=== PATIENT | male | born 1975 | race Caucasian/White ===

== ENCOUNTER 2017-03-08 18:25 | Emergency (ER) | payer OTHER, SELFPAY ==
[2017-03-08] MEDS ORDERED: Sodium Chloride 0.9% 1,000 ML IV STA (19:54)
[2017-03-08 21:00] LABS: BASO # 0.1 K/uL (0.0-0.2); BASO % 1.4 % (0.0-2.0); EOS # 0.1 K/uL (0.0-0.7); EOS % 1.3 % (0.0-4.0); HEMATOCRIT 41.1 % (35.0-51.0); LYMPH # 1.7 K/uL (1.0-4.3); LYMPH % 39.4 % (20.0-40.0); MEAN CELL VOLUME 90.2 fl (80.0-94.0); MEAN CORPUSCULAR HEMOGLOBIN 30.3 pg (27.0-31.0); MEAN CORPUSCULAR HGB CONC 33.6 g/dL (33.0-37.0); MEAN PLATELET VOLUME 7.7 fl (7.2-11.7); MONO # 0.5 K/uL (0.0-0.8); MONO % 11.6 % (0.0-10.0); NEUT % 46.3 % (50.0-75.0); NRBC % 0.1 % (0.0-0.0); WHITE BLOOD COUNT 4.4 K/uL (4.8-10.8)
--- NOTE | 2017-03-08 21:07 | ED PDOC ---
HPI: General Adult Time Seen by Provider: 03/08/17 19:46 Chief Complaint (Nursing): Flu-like Symptoms Chief Complaint (Provider): Flu-like symptoms History Per: Patient History/Exam Limitations: no limitations Onset/Duration Of Symptoms: Days (x4) Additional Complaint(s): Sharad Morris, 41 year old male presents to the ED on 03/08/17 with fever, cough , and body aches occurring 4 days prior to arrival. The patient has been taking Tylenol with minimal relief. He denies any recent sick contacts, recent travel, nausea, vomiting, diarrhea, abdominal pain, or rash. Past Medical History Reviewed: Historical Data, Nursing Documentation, Vital Signs Vital Signs: Last Vital Signs Temp 100.1 F H 03/08/17 23:16 Pulse 90 03/08/17 23:16 Resp 14 03/08/17 23:16 BP 122/69 03/08/17 23:16 Pulse Ox 97 03/08/17 23:16 - Medical History PMH: No Chronic Diseases - Family History Family History: States: Unknown Family Hx - Home Medications Home Medications: Ambulatory Orders Medication Instructions Recorded metFORMIN [glucOPHAGE] 500 mg PO BID #14 tab 01/19/16 Benzonatate [Tessalon Perle] 100 mg PO Q8 PRN #30 capsule 03/08/17 Naproxen [Naprosyn] 500 mg PO BID PRN #30 tab 03/08/17 - Allergies Allergies/Adverse Reactions: Allergies Allergy/AdvReac Type Severity Reaction Status Date / Time No Known Allergies Allergy Verified 01/19/16 12:27 Review of Systems Constitutional: Positive for: Fever Gastrointestinal: Negative for: Nausea, Vomiting, Abdominal Pain, Diarrhea Musculoskeletal: Positive for: Other (Body Aches) Skin: Negative for: Rash Physical Exam - Reviewed Nursing Documentation Reviewed: Yes Vital Signs Reviewed: Yes - Physical Exam Appears: Positive for: Non-toxic, No Acute Distress Head Exam: Positive for: ATRAUMATIC, NORMOCEPHALIC Skin: Positive for: Normal Color, Warm, Dry Eye Exam: Positive for: Normal appearance ENT: Positive for: Normal ENT Inspection Neck: Positive for: Normal Cardiovascular/Chest: Positive for: Regular Rate, Rhythm, Chest Non Tender Respiratory: Positive for: Normal Breath Sounds. Negative for: Respiratory Distress Gastrointestinal/Abdominal: Positive for: Normal Exam, Soft. Negative for: Tenderness Back: Positive for: Normal Inspection Extremity: Positive for: Normal ROM Neurologic/Psych: Positive for: Alert, Oriented (x3) - Laboratory Results Result Diagrams: 03/08/17 20:50 03/08/17 20:50 - ECG O2 Sat by Pulse Oximetry: 99 (RA) Pulse Ox Interpretation: Normal Medical Decision Making Medical Decision Making: Initial Impression: Fever, Cough, Body Aches Initial Plan: * COMP Metabolic Panel STAT * CBC (with Differential) Stat * CXR (PA & LAT) [Chest Two Views (PA/LAT) [RAD] Stat * Blood Culture Stat * IV Insertion (Saline Lock) Once * Influenza A B Stat * Rapid Strep Group A Antigen Stat * Urinalysis Stat * Sodium Chloride 0.9% 1,000 ml IV 1,000 mls/hr * Reevaluation Scribe Attestation: Documented by Charline Haas, acting as a scribe for Kemal Barclay PA-C. Provider Scribe Attestation: All medical record entries made by the Scribe were at my direction and personally dictated by me. I have reviewed the chart and agree that the record accurately reflects my personal performance of the history, physical exam, medical decision making, and the department course for this patient. I have also personally directed, reviewed, and agree with the discharge instructions and disposition. Disposition - Clinical Impression Clinical Impression: Influenza - Patient ED Disposition Is Patient to be Admitted: No - Disposition Referrals: [facility] [Outside] Disposition: Routine/Home Disposition Time: 23:00 Condition: STABLE Prescriptions: Benzonatate [Tessalon Perle] 100 mg PO Q8 PRN #30 capsule PRN Reason: Cough Naproxen [Naprosyn] 500 mg PO BID PRN #30 tab PRN Reason: Pain Instructions: Influenza (ED) Print Language: CZECH
[2017-03-08 21:18] LABS: ALB/GLOB RATIO 1.2 (1.0-2.1); ALKALINE PHOSPHATASE 186 U/L (38-126); ALT/SGPT 42 U/L (21-72); AST/SGOT 31 U/L (17-59); BILIRUBIN,TOTAL 0.5 mg/dl (0.2-1.3); BLOOD UREA NITROGEN 14 mg/dl (9-20); CALCIUM 9.3 mg/dL (8.4-10.2); CARBON DIOXIDE 25 mmol/L (22-30); CHLORIDE 98 mmol/L (98-107); GFR AFRICAN-AMERICAN > 60; GLUCOSE,RANDOM 279 mg/dL (75-110); POTASSIUM 3.7 MMOL/L (3.6-5.0); SODIUM 136 mmol/l (132-148); TOTAL PROTEIN 8.2 G/DL (6.3-8.2)
[2017-03-08 21:18] LABS: RBC URINE 3 /hpf (0-3); URINE BACTERIA FEW (<OCC); URINE BILIRUBIN NEGATIVE (NEGATIVE); URINE BLOOD SMALL (NEGATIVE); URINE COLOR YELLOW (YELLOW); URINE GLUCOSE (UA) >=500 mg/dL (Normal); URINE KETONE 20 mg/dL (NEGATIVE); URINE LEUKOCYTE ESTERASE NEG Leu/uL (Negative); URINE PROTEIN 30 mg/dL (NEGATIVE); URINE UROBILINOGEN 0.2-1.0 mg/dL (0.2-1.0); WBC URINE 1 /hpf (0-5)
[2017-03-08 23:17] VITALS: BP 122/69; PULSE 90; RESP 14; TEMP 100.1
[2017-03-09 00:15] VITALS: O2SAT 99
--- NOTE | 2017-03-09 09:32 | RAD ---
HISTORY: cough COMPARISON: 01/19/2016 TECHNIQUE: Chest PA and lateral FINDINGS: LUNGS: No active pulmonary disease. PLEURA: No significant pleural effusion identified. No pneumothorax apparent. CARDIOVASCULAR: Normal. OSSEOUS STRUCTURES: Minor multilevel degenerative spondylosis with the minor chronic appearing anterior wedge deformities of a few mid thoracic segments. VISUALIZED UPPER ABDOMEN: Normal. OTHER FINDINGS: None. IMPRESSION: No acute cardiopulmonary disease.
== END 2017-03-08 23:45 | disposition home or self-care (01) ==
LOC: H.ER 18:25
DX: J11.00 Influenza due to unidentified influenza virus with unspecified type of pneumonia (principal); R50.9 Fever, unspecified; R05 Cough

== ENCOUNTER 2018-04-04 10:58 | Observation (INO) | payer OTHER ==
[2018-04-04] MEDS ORDERED: Sodium Chloride 0.9% 1,000 ML IV STA (11:20)
[2018-04-04] MEDS ORDERED: Insulin Regular 100 units/ml SC STA (11:20)
--- NOTE | 2018-04-04 11:23 | ED PDOC ---
HPI: Chest Pain Time Seen by Provider: 04/04/18 11:14 Chief Complaint (Nursing): Chest Pain History Per: Patient Onset/Duration Of Symptoms: Days (2) Current Symptoms Are (Timing): Still Present Severity: Moderate Pain Scale Rating Of: 3 Quality: Tightness Associated Symptoms: Dyspnea Modifying Factors: None Exacerbating Factors: None Additional Complaint(s): Left sided chest tightness radiating to left arm since yesterday. Assoc with mild SOB. Past Medical History Vital Signs: Last Vital Signs Temp 98.5 F 04/04/18 11:07 Pulse 79 04/04/18 11:33 Resp 20 04/04/18 11:07 BP 123/85 04/04/18 11:20 Pulse Ox 98 04/04/18 11:23 - Medical History PMH: Diabetes - Family History Family History: States: Unknown Family Hx - Home Medications Home Medications: Ambulatory Orders Medication Instructions Recorded metFORMIN [glucOPHAGE] 500 mg PO BID #14 tab 01/19/16 Benzonatate [Tessalon Perle] 100 mg PO Q8 PRN #30 capsule 03/08/17 Naproxen [Naprosyn] 500 mg PO BID PRN #30 tab 03/08/17 - Allergies Allergies/Adverse Reactions: Allergies Allergy/AdvReac Type Severity Reaction Status Date / Time No Known Allergies Allergy Verified 04/04/18 11:15 Review of Systems ROS Statement: Except As Marked, All Systems Reviewed And Found Negative Cardiovascular: Positive for: Chest Pain Physical Exam - Reviewed Nursing Documentation Reviewed: Yes Vital Signs Reviewed: Yes - Physical Exam Appears: Positive for: Non-toxic, No Acute Distress Head Exam: Positive for: ATRAUMATIC, NORMAL INSPECTION, NORMOCEPHALIC Skin: Positive for: Normal Color, Warm, DRY Eye Exam: Positive for: EOMI, Normal appearance, PERRL ENT: Positive for: Normal ENT Inspection Neck: Positive for: Normal, Painless ROM Cardiovascular/Chest: Positive for: Regular Rate, Rhythm Respiratory: Positive for: CNT, Normal Breath Sounds Gastrointestinal/Abdominal: Positive for: Normal Exam, Soft Back: Positive for: Normal Inspection Extremity: Positive for: Normal ROM Neurologic/Psych: Positive for: Alert, Oriented - Laboratory Results Result Diagrams: 04/04/18 11:40 04/04/18 11:40 - ECG O2 Sat by Pulse Oximetry: 98 Disposition - Clinical Impression Clinical Impression: Chest pain, Hyperglycemia - Patient ED Disposition Is Patient to be Admitted: Yes - Disposition Disposition Time: 12:22 Condition: FAIR Forms: [facility] (Palestinian) - Pt Status Changed To: Hospital Disposition Of: Observation - POA Present On Arrival: None
[2018-04-04] MEDS ORDERED: Insulin Regular 100 units/ml ONE (11:27)
[2018-04-04 11:52] LABS: BASO % 0.6 % (0.0-2.0); EOS # 0.9 K/uL (0.0-0.7); EOS % 15.4 % (0.0-4.0); HEMOGLOBIN 14.2 g/dL (12.0-18.0); LYMPH # 1.9 K/uL (1.0-4.3); LYMPH % 31.2 % (20.0-40.0); MEAN CELL VOLUME 91.4 fl (80.0-94.0); MEAN CORPUSCULAR HEMOGLOBIN 31.2 pg (27.0-31.0); MEAN CORPUSCULAR HGB CONC 34.1 g/dL (33.0-37.0); MEAN PLATELET VOLUME 8.1 fl (7.2-11.7); MONO # 0.4 K/uL (0.0-0.8); NEUT # 2.8 K/uL (1.8-7.0); NEUT % 45.8 % (50.0-75.0); NRBC % 0.1 % (0.0-0.0); RBC 4.54 Mil/uL (4.40-5.90); RED CELL DISTRIBUTION WIDTH 12.7 % (11.5-14.5)
[2018-04-04 12:03] LABS: ALB/GLOB RATIO 1.2 (1.0-2.1); ALBUMIN 4.2 g/dL (3.5-5.0); ALT/SGPT 44 U/L (21-72); AST/SGOT 23 U/L (17-59); BLOOD UREA NITROGEN 12 mg/dl (9-20); CALCIUM 9.2 mg/dL (8.4-10.2); GFR AFRICAN-AMERICAN > 60; GFR NON-AFRICAN AMERICAN > 60
--- NOTE | 2018-04-04 12:19 | RAD ---
HISTORY: chest pain COMPARISON: Chest radiographs 03/08/2017. TECHNIQUE: Chest PA and lateral FINDINGS: LUNGS: No active pulmonary disease. PLEURA: No significant pleural effusion identified. No pneumothorax apparent. CARDIOVASCULAR: Normal. OSSEOUS STRUCTURES: No significant abnormalities. VISUALIZED UPPER ABDOMEN: Normal. OTHER FINDINGS: None. IMPRESSION: No interval acute cardiopulmonary disease appreciated.
--- NOTE | 2018-04-04 13:23 | CP.PCM.HP ---
History of Present Illness - History of Present Illness History of Present Illness: 42 y/o M with a PMHx of DM2 presented to ED c/o L sided chest pain that began last afternoon. Pt explains having L arm pain yesterday around 2 pm, radiated to L side chest, constant, 9/10 intensity, feels like inner pressure and associated with a mild breathing discomfort. Pt denies any recent trauma, nausea , vomiting, headache, dizziness, acid reflux, abdominal pain or rash. Pt has not taken any medication for more than 3 months as he complains of dizziness, blurry vision, generalized weakness and nausea when taking his medications. --Pt diagnosed with DM 2 around 2 years ago. Pt visited his PCP for the last time on 10/10/16 and was under Metformin 1,000mg BID, Glipizide 5mg daily and Atorvastatin 10mg daily. NKDA Medications: None PMD: [facility] PMHx: DM 2. PSHx: denied FHx: Mother with DM 2, . SHx: No tobacco, alcohol or rec drugs. ED Course: -VS wnl -CBC unremarkable, CMP unremarkable, Serum glucose 357-high -EKG, final report pending -CXR - unremarkable. -Troponin neg x1. -Aspirin, Nitroglycerin and Insulin given to pt. Present on Admission - Present on Admission Any Indicators Present on Admission: No Review of Systems - Constitutional Constitutional: absent: Anorexia, Chills - EENT Eyes: absent: Blurred Vision Nose/Mouth/Throat: absent: Nasal Congestion, Dysphagia, Neck Pain - Cardiovascular Cardiovascular: Chest Pain, Dyspnea. absent: Claudication, Diaphoresis - Respiratory Respiratory: Dyspnea - Gastrointestinal Gastrointestinal: absent: Abdominal Pain, Coffee Ground Emesis, Cramping, Diarrhea, Excessive Flatus, Fecal Incontinence - Neurological Neurological: absent: Abnormal Gait, Dizziness, Headaches - Psychiatric Psychiatric: absent: Abnormal Sleep Pattern Past Patient History - Past Social History Smoking Status: Never Smoked - ENDOCRINE/METABOLIC Hx Endocrine Disorders: Yes Hx Diabetes Mellitus Type 2: Yes - PSYCHIATRIC Hx Substance Use: No - SURGICAL HISTORY Hx Surgeries: No - ANESTHESIA Hx Anesthesia: No Meds Allergies/Adverse Reactions: Allergies Allergy/AdvReac Type Severity Reaction Status Date / Time No Known Allergies Allergy Verified 04/04/18 11:15 Physical Exam - Constitutional Appears: No Acute Distress - Head Exam Head Exam: NORMAL INSPECTION - Eye Exam Eye Exam: EOMI, Normal appearance - ENT Exam ENT Exam: Mucous Membranes Moist - Neck Exam Neck exam: Positive for: Full Rom. Negative for: Meningismus - Respiratory Exam Respiratory Exam: NORMAL BREATHING PATTERN. absent: Rales, Rhonchi, Wheezes - Cardiovascular Exam Cardiovascular Exam: REGULAR RHYTHM, +S1, +S2 - GI/Abdominal Exam GI & Abdominal Exam: Normal Bowel Sounds, Soft. absent: Distended, Guarding, Hernia, Tenderness - Extremities Exam Extremities exam: Positive for: full ROM, normal inspection. Negative for: calf tenderness, joint swelling, pedal edema - Neurological Exam Neurological exam: Alert, Oriented x3 Results - Vital Signs Recent Vital Signs: Last Vital Signs Temp 98.5 F 04/04/18 11:07 Pulse 79 04/04/18 11:33 Resp 20 04/04/18 11:07 BP 123/85 04/04/18 11:20 Pulse Ox 98 04/04/18 12:22 - Labs Result Diagrams: 04/04/18 11:40 04/04/18 11:40 Labs: Laboratory Results - last 24 hr 04/04/18 04/04/18 04/04/18 11:19 11:40 11:40 WBC 6.0 RBC 4.54 Hgb 14.2 Hct 41.5 MCV 91.4 MCH 31.2 H MCHC 34.1 RDW 12.7 Plt Count 265 MPV 8.1 Neut % (Auto) 45.8 L Lymph % (Auto) 31.2 [place] % (Auto) 7.0 Eos % (Auto) 15.4 H Baso % (Auto) 0.6 Neut # (Auto) 2.8 Lymph # (Auto) 1.9 [place] # (Auto) 0.4 Eos # (Auto) 0.9 H Baso # (Auto) 0.0 Sodium 135 Potassium 4.1 Chloride 99 Carbon Dioxide 23 Anion Gap 17 BUN 12 Creatinine 0.5 L Est GFR ( Amer) > 60 Est GFR (Non-Af Amer) > 60 POC Glucose (mg/dL) 357 H Random Glucose 379 H Calcium 9.2 Total Bilirubin 0.5 AST 23 ALT 44 Alkaline Phosphatase 179 H Troponin I < 0.0120 Total Protein 7.8 Albumin 4.2 Globulin 3.6 Albumin/Globulin Ratio 1.2 Assessment & Plan - Assessment and Plan (Free Text) Assessment: 42 y/o M with a PMHx of uncontrolled DM 2 admitted for evaluation of chest pain. Chest pain -Need to rule out CAD. -EKG - preliminary abnormal - final report pending -Troponin x1 neg -CXR - unremarkable. -Will repeat EKG for tomorrow. -F/U troponin, CBC, CMP, lipid panel and HbA1c. DM 2-uncontrolled -non-adherent to pharmacotherapy. -Last HbA1c 9.1 on 09/20/16 -Metformin 500mg BID -Insulin sliding scale. -F/U glucose level, hbA1c and lipid panel. DVT Prophylaxis -Enoxaparin 40mg SC daily - Date & Time Date: 04/04/18 Time: 13:17
[2018-04-04] MEDS ORDERED: Pneumococcal 23-Valent Vaccine IM ONE (15:28)
[2018-04-04] MEDS: Insulin Regular 100 units/ml SC SCH ×2 (18:02→22:18)
--- NOTE | 2018-04-04 18:59 | CARD ---
APPROVED REPORT EKG Measurement Heart [id number] <Conclusion> Normal sinus rhythm Nonspecific ST and T wave abnormality Abnormal ECG
[2018-04-05 04:16] LABS: ALB/GLOB RATIO 1.2 (1.0-2.1); ALBUMIN 4.2 g/dL (3.5-5.0); ALT/SGPT 39 U/L (21-72); AST/SGOT 26 U/L (17-59); BLOOD UREA NITROGEN 15 mg/dl (9-20); CALCIUM 9.6 mg/dL (8.4-10.2); GFR AFRICAN-AMERICAN > 60; GFR NON-AFRICAN AMERICAN > 60; HDL CHOLESTEROL 42 MG/DL (30-70)
[2018-04-05 04:26] LABS: LDL CHOLESTEROL 96 mg/dL (0-129)
[2018-04-05 05:27] LABS: HEMOGLOBIN 14.4 g/dL (12.0-18.0); MEAN CELL VOLUME 91.1 fl (80.0-94.0); MEAN CORPUSCULAR HEMOGLOBIN 31.2 pg (27.0-31.0); MEAN CORPUSCULAR HGB CONC 34.3 g/dL (33.0-37.0); RBC 4.6 Mil/uL (4.40-5.90); RED CELL DISTRIBUTION WIDTH 12.8 % (11.5-14.5); WHITE BLOOD COUNT 7.7 K/uL (4.8-10.8)
[2018-04-05 08:01] VITALS: RESP 18; TEMP 97.7; O2SAT 98
[2018-04-05] MEDS ORDERED: Enoxaparin 40 mg Syringe SC SCH (09:00)
[2018-04-05] MEDS: Insulin Regular 100 units/ml SC SCH (09:05)
--- NOTE | 2018-04-05 10:16 | CARD ---
APPROVED REPORT EKG Measurement Heart [id number] <Conclusion> Normal sinus rhythm ST elevation, probably due to early repolarization Borderline ECG
--- NOTE | 2018-04-05 11:41 | CP.PCM.DIS ---
Provider - Provider Date of Admission: 04/04/18 12:20 Attending physician: Molly Ibarra MD Primary care physician: NDClarke Time Spent in preparation of Discharge (in minutes): 40 Diagnosis - Discharge Diagnosis (1) Non-cardiac chest pain Status: Acute (2) Diabetes mellitus type 2 in nonobese Status: Chronic Comment: Uncontrolled Hospital Course - Lab Results Lab Results: Most Recent Lab Values WBC 7.7 K/uL (4.8-10.8) 04/05/18 05:07 RBC 4.60 Mil/uL (4.40-5.90) 04/05/18 05:07 Hgb 14.4 g/dL (12.0-18.0) 04/05/18 05:07 Hct 41.9 % (35.0-51.0) 04/05/18 05:07 MCV 91.1 fl (80.0-94.0) 04/05/18 05:07 MCH 31.2 pg (27.0-31.0) H 04/05/18 05:07 MCHC 34.3 g/dL (33.0-37.0) 04/05/18 05:07 RDW 12.8 % (11.5-14.5) 04/05/18 05:07 Plt Count 254 K/uL (130-400) 04/05/18 05:07 MPV 8.1 fl (7.2-11.7) 04/04/18 11:40 Neut % (Auto) 45.8 % (50.0-75.0) L 04/04/18 11:40 Lymph % (Auto) 31.2 % (20.0-40.0) 04/04/18 11:40 [place] % (Auto) 7.0 % (0.0-10.0) 04/04/18 11:40 Eos % (Auto) 15.4 % (0.0-4.0) H 04/04/18 11:40 Baso % (Auto) 0.6 % (0.0-2.0) 04/04/18 11:40 Neut # (Auto) 2.8 K/uL (1.8-7.0) 04/04/18 11:40 Lymph # (Auto) 1.9 K/uL (1.0-4.3) 04/04/18 11:40 [place] # (Auto) 0.4 K/uL (0.0-0.8) 04/04/18 11:40 Eos # (Auto) 0.9 K/uL (0.0-0.7) H 04/04/18 11:40 Baso # (Auto) 0.0 K/uL (0.0-0.2) 04/04/18 11:40 Sodium 137 mmol/l (132-148) 04/05/18 04:03 Potassium 4.0 MMOL/L (3.6-5.0) 04/05/18 04:03 Chloride 102 mmol/L (98-107) 04/05/18 04:03 Carbon Dioxide 25 mmol/L (22-30) 04/05/18 04:03 Anion Gap 14 (10-20) 04/05/18 04:03 BUN 15 mg/dl (9-20) 04/05/18 04:03 Creatinine 0.5 mg/dl (0.8-1.5) L 04/05/18 04:03 Est GFR ( Amer) > 60 04/05/18 04:03 Est GFR (Non-Af Amer) > 60 04/05/18 04:03 POC Glucose (mg/dL) 268 mg/dL (65-110) H 04/05/18 10:54 Random Glucose 215 mg/dL (75-110) H 04/05/18 04:03 Calcium 9.6 mg/dL (8.4-10.2) 04/05/18 04:03 Total Bilirubin 0.4 mg/dl (0.2-1.3) 04/05/18 04:03 AST 26 U/L (17-59) 04/05/18 04:03 ALT 39 U/L (21-72) 04/05/18 04:03 Alkaline Phosphatase 142 U/L (38-126) H D 04/05/18 04:03 Troponin I < 0.0120 ng/mL (0.00-0.120) 04/05/18 04:03 Total Protein 7.7 G/DL (6.3-8.2) 04/05/18 04:03 Albumin 4.2 g/dL (3.5-5.0) 04/05/18 04:03 Globulin 3.5 gm/dL (2.2-3.9) 04/05/18 04:03 Albumin/Globulin Ratio 1.2 (1.0-2.1) 04/05/18 04:03 Triglycerides 552 mg/DL (0-149) H D 04/05/18 04:03 Cholesterol 250 mg/dL (0-199) H 04/05/18 04:03 LDL Cholesterol Direct 96 mg/dL (0-129) 04/05/18 04:03 HDL Cholesterol 42 MG/DL (30-70) 04/05/18 04:03 - Hospital Course Hospital Course: 42 y/o male with PMH of DMII admitted to [facility] for 1 day hx of chest pain. During hospital stay, patient had normal CBC, CMP and CXR, EKG showed: NSR with ST elevation probably due to early repolarization, Troponin x3 negative. On discharge day, patient is asymptomatic, discharged home with Metformin 500 BID, Glipizide and Statin. Follow up with PMD. Discharge Exam - Head Exam Head Exam: NORMAL INSPECTION - Eye Exam Eye Exam: Normal appearance Pupil Exam: NORMAL ACCOMODATION - ENT Exam ENT Exam: Mucous Membranes Moist - Neck Exam Neck exam: Normal Inspection - Respiratory Exam Respiratory Exam: Clear to PA & Lateral, NORMAL BREATHING PATTERN - Cardiovascular Exam Cardiovascular Exam: REGULAR RHYTHM, +S1, +S2 - GI/Abdominal Exam GI & Abdominal Exam: Normal Bowel Sounds - Neurological Exam Neurological exam: Alert, CN II-XII Intact, Oriented x3 - Psychiatric Exam Psychiatric exam: Normal Affect Discharge Plan - Discharge Medications Prescriptions: Atorvastatin [Lipitor] 10 mg PO DIN #30 tab GlipiZIDE [Glucotrol] 5 mg PO DAILY #30 tab metFORMIN [glucOPHAGE] 500 mg PO BIDWM #60 tab - Follow Up Plan Condition: FAIR Disposition: HOME/ ROUTINE Patient education suggested?: Yes Instructions: Hyperglycemia, Adult (DC), Blood Glucose Monitoring, Diabetes and Diet Additional Instructions: elver en la clinica /2018 a las 3;20PM con el doctor nehemias Referrals: [facility] [place] [Outside] Johnnie Appiah MD [Resident] -
[2018-04-05 12:02] VITALS: BP 116/74; PULSE 71
== END 2018-04-05 14:15 | disposition home or self-care (01) ==
LOC: H.ER 10:58 → H.ERHOLD 12:20 → H.TEL 14:49
PROVIDERS: ADMIT Family Medicine Geriatric Medicine; ATTEND Family Medicine Geriatric Medicine
DX: R07.89 Other chest pain (principal); E11.65 Type 2 diabetes mellitus with hyperglycemia; Z23 Encounter for immunization; Z91.19 Patient's noncompliance with other medical treatment and regimen
CPT/HCPCS: 36415; 71046; 80053; 80061; 82948; 83036; 84484; 85025; 85027; 90471; 90732; 93005; 99285; G0378; J7030